=== PATIENT | male | born 1950 | race American Indian/Alaskan Native ===

== ENCOUNTER 2020-09-03 14:05 | Emergency (ER) | payer MEDICARE, OTHER ==
[2020-09-03 14:35] VITALS: BP 120/62; PULSE 78
--- NOTE | 2020-09-03 17:14 | EDM.PDOC ---
Scribed by Anne Marie Atwood 09/03/20 [id number] for Gabby Jenkins NP ED HPI GENERAL MEDICAL PROBLEM - General Chief Complaint: Genitourinary Problem Stated Complaint: CATHETER REMOVED THIS / PAIN NOW Time Seen by Provider: 09/03/20 16:54 Source of Information: Reports: Patient, RN, RN Notes Reviewed History Limitations: Reports: No Limitations - History of Present Illness INITIAL COMMENTS - FREE TEXT/NARRATIVE: Patient is a 70-year-old male who presents to ER with complaint of bladder pressure. Patient states he recently had prostate surgery at [facility]. He was to have a catheter in over the weekend. It was removed this A.M. at [facility]. He has not been able to urinate since then. Catheter was taken out at approximately 8:30 A.M. Onset: Today Duration: Getting Worse Severity: Moderate Improves with: Reports: None Worsens with: Reports: None Associated Symptoms: Reports: No Other Symptoms Abdomen Pain Score (Numeric/FACES): 10 - Related Data Allergies Allergy/AdvReac Type Severity Reaction Status Date / Time ciprofloxacin Allergy Unknown NAUSEA,VOMI Verified 09/03/20 14:41 TING Home Meds: Home Meds Tamsulosin [Tamsulosin 24 Hr] 0.4 mg PO BEDTIME 06/22/13 [History] Aspirin [Ecotrin] 81 mg PO DAILY 02/18/16 [History] Baclofen 20 mg PO TID 02/18/16 [History] Gabapentin [Neurontin] 600 mg PO TID 02/18/16 [History] Hydrochlorothiazide 25 mg PO DAILY 02/18/16 [History] [place]-3S/DHA/Epa/Fish Oil [Fish Oil [place]-3 Softgel] 2,000 mg PO DAILY 02/18/16 [History] Docusate Sodium [Colace Clear] 50 mg PO DAILY 02/19/16 [History] Magnesium Oxide 400 mg PO DAILY 02/19/16 [History] Multivitamin [Daily Multiple Vitamin] 1 tab PO DAILY 02/19/16 [History] Vitamin E (Dl,Tocopheryl Acet) [Vitamin E] 400 unit PO DAILY 02/19/16 [History] Past Medical History HEENT History: Reports: None Cardiovascular History: Reports: None, High Cholesterol Respiratory History: Reports: None Gastrointestinal History: Reports: Cholelithiasis, Chronic Constipation, Other (See Below) Other Gastrointestinal History: Fatty liver, HAS A HERNIA Genitourinary History: Reports: Prostate Disorder, Other (See Below) Other Genitourinary History: BPH. Hypotonicity of bladder Musculoskeletal History: Reports: Other (See Below) Other Musculoskeletal History: Low back trauma with resultant surgery Neurological History: Reports: Other (See Below) Other Neuro History: Epidural abscess Psychiatric History: Reports: None Endocrine/Metabolic History: Reports: Diabetes, Type II Hematologic History: Reports: None Other Hematologic History: MRSA (Methicillin resistant staph aureus). Treated Immunologic History: Reports: None Oncologic (Cancer) History: Reports: None Dermatologic History: Reports: None - Infectious Disease History Infectious Disease History: Reports: Chicken Pox, MRSA, Shingles - Past Surgical History Head Surgeries/Procedures: Reports: None HEENT Surgical History: Reports: None Cardiovascular Surgical History: Reports: None Respiratory Surgical History: Reports: None GI Surgical History: Reports: None, Colonoscopy, EGD Male Surgical History: Reports: None Musculoskeletal Surgical History: Reports: Other (See Below) Other Musculoskeletal Surgeries/Procedures:: back surgery Social & Family History - Family History Family Medical History: No Pertinent Family History HEENT: Reports: None Cardiac: Reports: Hypertension Respiratory: Reports: COPD GI: Reports: None : Reports: None OBGYN: Reports: None Musculoskeletal: Reports: None Neurological: Reports: None Psychiatric: Reports: None Endocrine/Metabolic: Reports: Diabetes, type II Hematologic: Reports: None Immunologic: Reports: None Dermatologic: Reports: None Oncologic: Reports: Renal - Tobacco Use Tobacco Use Status *Q: Never Tobacco User - Caffeine Use Caffeine Use: Reports: Coffee - Recreational Drug Use Recreational Drug Use: No ED ROS GENERAL - Review of Systems Review Of Systems: Comprehensive ROS is negative, except as noted in HPI. ED EXAM, RENAL/ - Physical Exam Exam: See Below Exam Limited By: No Limitations General Appearance: Alert, WD/WN, No Apparent Distress Eye Exam: Bilateral Eye: EOMI, Normal Inspection, PERRL Ears: Normal External Exam, Normal Canal, Hearing Grossly Normal, Normal TMs Nose: Normal Inspection, Normal Mucosa, No Blood Throat/Mouth: Normal Inspection, Normal Lips, Normal Teeth, Normal Gums, Normal Oropharynx, Normal Voice, No Airway Compromise Head: Atraumatic, Normocephalic Neck: Normal Inspection, Supple, Non-Tender, Full Range of Motion Respiratory/Chest: No Respiratory Distress, Lungs Clear, Normal Breath Sounds, No Accessory Muscle Use, Chest Non-Tender Cardiovascular: Normal Peripheral Pulses, Regular Rate, Rhythm, No Edema, No Gallop, No JVD, No Murmur, No Rub GI/Abdominal: Tender (lower abdomen) (Male) Exam: Deferred Rectal (Males) Exam: Deferred Back Exam: Normal Inspection, Full Range of Motion, NT Extremities: Normal Inspection, Normal Range of Motion, Non-Tender, Normal Capillary Refill, No Pedal Edema Neurological: Alert, Oriented, CN II-XII Intact, Normal Cognition, Normal Gait, Normal Reflexes, No Motor/Sensory Deficits Psychiatric: Normal Affect, Normal Mood Skin Exam: Warm, Dry, Intact, Normal Color, No Rash Lymphatic: No Adenopathy Course - Vital Signs Last Recorded V/S: Last Vital Signs Temp 97.9 F 09/03/20 14:34 Pulse 78 09/03/20 14:34 Resp 18 09/03/20 14:34 BP 120/62 09/03/20 14:34 Pulse Ox 98 09/03/20 14:34 - Orders/Labs/Meds Orders: Active Orders 24 hr Category Date Time Status Insert Urinary Catheter [OM.PC] Q24H Care 09/03/20 16:00 Ordered Departure - Departure Time of Disposition: 17:01 Disposition: Home, Self-Care 01 Condition: Good Clinical Impression: Retention of urine - Discharge Information *PRESCRIPTION DRUG MONITORING PROGRAM REVIEWED*: No *COPY OF PRESCRIPTION DRUG MONITORING REPORT IN PATIENT DAVID: No Instructions: Acute Urinary Retention, Male, [id number] Forms: ED Department Discharge Additional Instructions: Follow-up with your urology clinic tomorrow morning for further instruction Return to the ER with any worsening of problems Sepsis Event Note (ED) - Evaluation Sepsis Screening Result: No Definite Risk - Focused Exam Vital Signs: Vital Signs Temp Pulse Resp BP Pulse Ox 09/03/20 14:34 97.9 F 78 18 120/62 98 - My Orders Last 24 Hours: My Active Orders 09/03/20 16:00 Insert Urinary Catheter [OM.PC] Q24H - Assessment/Plan Last 24 Hours: My Active Orders 09/03/20 16:00 Insert Urinary Catheter [OM.PC] Q24H I have read and agree with the documentation that has been completed regarding this visit. By signing this record, I attest that the documentation was completed in my physical presence and is an accurate record of the encounter.
== END 2020-09-03 17:04 | disposition home or self-care (01) ==
LOC: DL.ED 14:05
DX: N40.1 Benign prostatic hyperplasia with lower urinary tract symptoms (principal); R33.8 Other retention of urine; E11.9 Type 2 diabetes mellitus without complications; Z79.899 Other long term (current) drug therapy; Z79.82 Long term (current) use of aspirin; Z88.1 Allergy status to other antibiotic agents
CPT/HCPCS: 51702; 99283; 99283-25

== ENCOUNTER 2023-02-05 10:14 | Emergency (ER) | payer BC, MEDICARE, OTHER ==
[2023-02-05 11:01] LABS: BASOPHILS PERCENT AUTO 0.6 % (0.0-1.0); EOSINOPHILS PERCENT AUTO 1.1 % (1.0-3.0); LYMPHOCYTES PERCENT AUTO 27.3 % (20.5-50.1); MEAN CORPUSCULAR HEMOGLOBIN 29.5 pg (27.0-34.0); MEAN CORPUSCULAR VOLUME 84.2 fL (80-100); MONOCYTES PERCENT AUTO 6.5 % (2-8); NEUTROPHILS PERCENT AUTO 64.5 % (42.2-75.2); PLATELET COUNT,PLT 230 10^3/uL (150-450); RED BLOOD CELL COUNT 4.75 10^6/uL (4.6-6.2); WHITE BLOOD CELL COUNT,WBC 5.3 10^3/uL (5.0-10.0)
[2023-02-05 11:03] VITALS: BP 136/71; PULSE 77
[2023-02-05 11:19] LABS: ALANINE AMINOTRANSFERASE,ALT 38 U/L (16-63); ALKALINE PHOSPHATASE 53 U/L (46-116); ANION GAP 11.3 mEq/L (7-13); ASPARTATE AMNIOTRANSFERASE,AST 15 U/L (15-37); BILIRUBIN TOTAL 0.5 mg/dL (0.2-1.0); BLOOD UREA NITROGEN,BUN 13 mg/dL (7-18); BUN/CREATININE RATIO 13.1 (No establ ref range); CALCIUM 8.4 mg/dL (8.5-10.1); CARBON DIOXIDE,CO2 27 mmol/L (21-32); CHLORIDE,CL 98 mmol/L (98-107); CREATININE 0.99 mg/dL (0.70-1.30); EST CRCL DRUG DOSING (CG) 69.64 mL/min; GLUCOSE RANDOM 210 mg/dL (70-99); MAGNESIUM 2.1 mg/dL (1.8-2.4); POTASSIUM,K 3.3 mmol/L (3.5-5.1); PROTEIN TOTAL,TP 7.9 g/dL (6.4-8.2); SODIUM,NA 133 mmol/L (136-145)
[2023-02-05 11:20] LABS: ESTIMATED GFR 81 mL/min (>=60)
== END 2023-02-05 13:55 | disposition home or self-care (01) ==
LOC: DL.ED 10:14
DX: R20.2 Paresthesia of skin (principal); E11.9 Type 2 diabetes mellitus without complications; Z79.82 Long term (current) use of aspirin; Z79.899 Other long term (current) drug therapy; Z88.1 Allergy status to other antibiotic agents
CPT/HCPCS: 36415; 70551; 80053; 83735; 84484; 85025; 93005; 93010; 99284